=== PATIENT | female | born 1935 | race Caucasian/White ===

== ENCOUNTER → 2020-09-01 | Outpatient (CLI) | payer MEDICARE | LOC: CT 13:57 | DX: R10.32 Left lower quadrant pain (principal); K59.00 Constipation, unspecified | CPT/HCPCS: 36415; 82565; Q9967 ==

== ENCOUNTER → 2021-05-27 | Outpatient (CLI) | payer MEDICARE | LOC: RAD 12:47 | DX: K59.00 Constipation, unspecified (principal) | CPT/HCPCS: 74018 ==

== ENCOUNTER 2021-08-02 13:20 | Emergency (ER) | payer MEDICARE ==
[2021-08-02 14:20] LABS: HEMOGLOBIN 10.6 gm/dl (12.3-15.3); RED BLOOD COUNT 3.62 M/UL (4.00-5.10)
[2021-08-02] MEDS ORDERED: ZOFRAN ODT 4 MG4 MG PO (17:38)
== END 2021-08-02 18:05 | disposition home or self-care (01) ==
LOC: ER1 13:20
PROVIDERS: Emergency Medicine
DX: M54.6 Pain in thoracic spine (principal); R11.2 Nausea with vomiting, unspecified; D64.9 Anemia, unspecified; I48.91 Unspecified atrial fibrillation; Z95.5 Presence of coronary angioplasty implant and graft; Z88.2 Allergy status to sulfonamides; Z88.5 Allergy status to narcotic agent; Z88.0 Allergy status to penicillin; Z79.02 Long term (current) use of antithrombotics/antiplatelets; Z79.899 Other long term (current) drug therapy
CPT/HCPCS: 71045; 72072; 80053; 81001; 82550; 82553; 84484; 85025; 87086; 93005; 99284

== ENCOUNTER 2021-10-06 12:54 | Emergency (ER) | payer MEDICARE ==
[~2021-10-06 12:54] MED LIST: ZOFRAN ODT 4 MG4 MG PO
[2021-10-06 13:30] LABS: RED BLOOD COUNT 3.36 M/UL (4.00-5.10); WHITE BLOOD COUNT 4.5 K/UL (4.5-11.0)
[2021-10-06 13:52] LABS: BUN/CREATININE RATIO 29 (0-10)
== END 2021-10-06 16:23 | disposition home or self-care (01) ==
LOC: ER1 12:54
PROVIDERS: Emergency Medicine
DX: R51.9 Headache, unspecified (principal); I25.10 Atherosclerotic heart disease of native coronary artery without angina pectoris; I10 Essential (primary) hypertension; Z86.73 Personal history of transient ischemic attack (TIA), and cerebral infarction without residual deficits; Z95.5 Presence of coronary angioplasty implant and graft; Z20.822 Contact with and (suspected) exposure to COVID-19
CPT/HCPCS: 70450; 71045; 80053; 82550; 82553; 84484; 85025; 85610; 85652; 85730; 93005; 99284; U0002

== ENCOUNTER → 2021-10-09 | Outpatient (CLI) | payer MEDICARE | LOC: GENOP 19:53 | DX: M31.6 Other giant cell arteritis (principal) | CPT/HCPCS: 85652; 86140 ==

== ENCOUNTER → 2021-10-21 | Outpatient (CLI) | payer MEDICARE | LOC: EMI 08:10 → KOH-I 08:10 → EMI 08:15 | DX: H53.123 Transient visual loss, bilateral (principal) | CPT/HCPCS: 70544; 70551; 93880 ==